=== PATIENT | male | born 1965 | race Caucasian/White ===

== ENCOUNTER 2016-11-21 00:43 | Observation (INO) | payer OTHER ==
[~2016-11-21] VITALS: Ht 177.8 cm; Wt 79.5 kg
[~2016-11-21 00:43] MED LIST: AMBIEN10 MG PO; DAILY VALUE1 EACH PO; INSULIN PUMP SCCONT; LISINOPRIL10 MG PO; METOPROLOL SUCC25 MG PO; PROMETHAZINE HC25 M1 PO; SEROQUEL12.5 MG PO; VENLAFAXINE HCL75 M3 PO; VITAMIN D1000 UNIT PO
[2016-11-21 02:03] LABS: HEMATOCRIT 39.7 % (38.0-50.0); MCH 30.6 PG (29.0-34.0); MCHC 34.5 G/DL (30.0-36.0); MCV 88.8 FL (86-99); PLATELET COUNT 227 K/uL (156-360); RBC DIS.WIDTH-CV 11.8 % (11.8-14.6); RBC DIS.WIDTH-SD 37.6 % (39-53); RED BLOOD COUNT 4.47 M/uL (4.00-5.50)
[2016-11-21 02:06] LABS: ADD MIUA? NO; BILIRUBIN NEGATIVE; BLOOD NEGATIVE; COLOR YELLOW ((YELLOW)); GLUCOSE (STRIP) >=1000; KETONES TRACE; LEUKOCYTES NEGATIVE; NITRITE NEGATIVE; PH, URINE 6.5 (5-8); PROTEIN (STRIP) NEGATIVE; SPECIFIC GRAVITY 1.029 (1.000-1.030); UCUL ADDED? NO; UROBILINOGEN 0.2 MG/DL (0.2-1.0)
[2016-11-21 02:15] LABS: AMPHETAMINE NEGATIVE (500 ng/mL); BARBITURATES NEGATIVE (200 ng/mL); BENZODIAZEPINES NEGATIVE (150 ng/mL); COCAINE NEGATIVE (150 ng/mL); INTERNAL CONTROLS VALID? YES; METHADONE NEGATIVE (200 ng/mL); METHAMPHETAMINE NEGATIVE (500 ng/mL); OPIATES (MORPHINE) NEGATIVE (100 ng/mL); OXYCODONE NEGATIVE (100 ng/mL); PHENCYCLIDINE NEGATIVE (25 ng/mL); PROPOXYPHENE NEGATIVE (300 ng/mL); THC CANNABINOIDS NEGATIVE (50 ng/mL); TRICYCLIC ANTIDEPRESSANTS NEGATIVE (300 ng/mL)
[2016-11-21 02:16] LABS: CHLORIDE 100 mEq/L (99-109); POTASSIUM 4.9 mEq/L (3.7-5.4); SODIUM 134 mEq/L (136-147)
[2016-11-21 02:19] LABS: ANION GAP 12 MEQ/L (2-14)
[2016-11-21 02:21] LABS: GFR ESTIMATE (CALCULATED) > 59 mL/min/
[2016-11-21 02:22] LABS: UREA NITROGEN (BUN) 19 mg/dL (9-23)
[2016-11-21 02:26] LABS: TROP-I INTERPRETATION NEGATIVE; TROPONIN-I < 0.01 ng/mL (0.0-0.30)
[2016-11-21 02:27] LABS: D-DIMER ELISA 0.33 mg/L FEU (< 0.57); GLUCOSE 592 mg/dL (70-99)
[2016-11-21 02:54] LABS: CARBON DIOXIDE (BICARBONATE) 30.4 MEQ/L (20-31)
[2016-11-21 03:51] LABS: TROP-I INTERPRETATION NEGATIVE; TROPONIN-I < 0.01 ng/mL (0.0-0.30)
[2016-11-21 06:16] LABS: POINT-OF-CARE METER ID UU13113702
[2016-11-21 09:08] LABS: CREATINE KINASE 127 IU/L (1-294); TOTAL CK 127 IU/L (1-294)
[2016-11-21 09:34] LABS: CK-MB 2.4 ng/mL (0.0-4.9)
[2016-11-21 09:55] LABS: POINT-OF-CARE METER ID UU13113700
[2016-11-21 10:55] VITALS: BP 80/51
[2016-11-21 13:20] LABS: TROP-I INTERPRETATION NEGATIVE; TROPONIN-I < 0.01 ng/mL (0.0-0.30)
[2016-11-21 14:26] LABS: POINT-OF-CARE METER ID UU13113831
[2016-11-21] MEDS ORDERED: TOPROL XL25 MG PO (15:04)
[2016-11-21] MEDS ORDERED: LIPITOR80 MG PO (15:04)
[2016-11-21 16:28] VITALS: BP 103/58
[2016-11-21 17:57] LABS: POINT-OF-CARE METER ID UU13113700
[2016-11-21 18:29] LABS: TROP-I INTERPRETATION NEGATIVE; TROPONIN-I < 0.01 ng/mL (0.0-0.30)
[2016-11-21 19:34] VITALS: BP 103/66
[2016-11-21 19:47] LABS: POINT-OF-CARE METER ID UU14162513
[2016-11-21 22:20] LABS: POINT-OF-CARE METER ID UU14162513
[2016-11-22 00:19] VITALS: BP 121/65
[2016-11-22 02:19] LABS: POINT-OF-CARE METER ID UU14162513
[2016-11-22 05:56] LABS: POINT-OF-CARE METER ID UU14162513
[2016-11-22 06:12] LABS: EOSINOPHIL (%) 5.9 % (0-5); EOSINOPHIL COUNT 0.4 K/uL (0-0.3); HEMATOCRIT 38.5 % (38.0-50.0); IMMATURE GRANULOCYTE (%) 0.1 % (0.0-0.7); LYMPHOCYTE COUNT 1.5 K/uL (1.0-2.8); MCH 30.6 PG (29.0-34.0); MCHC 34.5 G/DL (30.0-36.0); MCV 88.7 FL (86-99); MONOCYTE (%) 7.1 % (3-12); MONOCYTE COUNT 0.5 K/uL (0-0.8); NEUTROPHIL (%) 66.1 % (45-76); NEUTROPHIL COUNT 4.9 K/uL (1.8-6.4); PLATELET COUNT 204 K/uL (156-360); RBC DIS.WIDTH-CV 11.9 % (11.8-14.6); RBC DIS.WIDTH-SD 38.4 % (39-53); RED BLOOD COUNT 4.34 M/uL (4.00-5.50); WHITE BLOOD COUNT 7.3 K/uL (4.1-10.2)
[2016-11-22 06:29] LABS: ANION GAP 7 MEQ/L (2-14); CHLORIDE 103 MEQ/L (99-109); GFR ESTIMATE (CALCULATED) > 59 mL/min/; SAMPLE HEMOLYSIS CHECK 0; SAMPLE ICTERIC CHECK 0; SAMPLE LIPEMIA CHECK 0; SODIUM 138 MEQ/L (136-147); UREA NITROGEN (BUN) 10 mg/dL (9-23)
[2016-11-22 06:32] LABS: GLUCOSE 175 mg/dL (70-99); POTASSIUM 3.6 MEQ/L (3.7-5.4)
[2016-11-22 08:00] VITALS: BP 118/73
[2016-11-22 10:34] LABS: TREPONEMA ANTIBODY NEGATIVE (NEGATIVE)
[2016-11-22 12:15] VITALS: BP 122/72
[2016-11-22] MEDS ORDERED: NOVOLOG PE100 UNITS/ SC (12:24)
[2016-11-22] MEDS ORDERED: LEVEMIR100 UNIT/2 SC (12:25)
[2016-11-22 15:00] LABS: POINT-OF-CARE METER ID UU13113702
== END 2016-11-22 12:59 | disposition home or self-care (01) ==
LOC: EME 00:43 → EDOF 04:37 → 5WEST 04:37
PROVIDERS: Internal Medicine; Physician Assistant; Physician Assistant Medical; Student in an Organized Health Care Education/Training Program
DX: R07.9 Chest pain, unspecified (principal); R41.82 Altered mental status, unspecified; G93.40 Encephalopathy, unspecified; E11.65 Type 2 diabetes mellitus with hyperglycemia; E78.5 Hyperlipidemia, unspecified; Z72.0 Tobacco use; M62.81 Muscle weakness (generalized); I95.9 Hypotension, unspecified
CPT/HCPCS: 70450; 70551; 71020; 80048; 81003; 82009; 82140; 82550 91; 82553; 82607; 82746; 82803; 82948; 84484; 85025; 85027; 85379; 86780; 93005; 99281; 99285; G0378; J1630; J1650; J1815; J2060; J7030

== ENCOUNTER 2018-03-21 09:42 | Emergency (ER) | payer OTHER ==
[~2018-03-21] VITALS: Ht 177.8 cm; Wt 79.0 kg
[~2018-03-21 09:42] MED LIST changes: +LEVEMIR100 UNIT/2 SC; +LIPITOR80 MG PO; +NOVOLOG PE100 UNITS/ SC; +TOPROL XL25 MG PO
[2018-03-21 10:41] LABS: HEMATOCRIT 41.7 % (38.0-50.0); HEMOGLOBIN 15.1 G/DL (12.5-16.6); MCH 32.4 PG (29.0-34.0); MCHC 36.2 G/DL (30.0-36.0); MCV 89.5 FL (86-99); PLATELET COUNT 297 K/uL (156-360); RBC DIS.WIDTH-CV 12.6 % (11.8-14.6); RBC DIS.WIDTH-SD 41.4 % (39-53); RED BLOOD COUNT 4.66 M/uL (4.00-5.50); WHITE BLOOD COUNT 12.7 K/uL (4.1-10.2)
[2018-03-21 10:46] LABS: AMPHETAMINE NEGATIVE (500 ng/mL); BARBITURATES NEGATIVE (200 ng/mL); BENZODIAZEPINES PRESUMPTIVE POSITIVE (150 ng/mL); BUPRENORPHINE NEGATIVE (10 ng/mL); COCAINE NEGATIVE (150 ng/mL); METHADONE NEGATIVE (200 ng/mL); METHAMPHETAMINE NEGATIVE (500 ng/mL); OPIATES (MORPHINE) NEGATIVE (100 ng/mL); OXYCODONE NEGATIVE (100 ng/mL); PHENCYCLIDINE NEGATIVE (25 ng/mL); PROPOXYPHENE NEGATIVE (300 ng/mL); THC CANNABINOIDS NEGATIVE (50 ng/mL); TRICYCLIC ANTIDEPRESSANTS NEGATIVE (300 ng/mL)
[2018-03-21 10:51] LABS: CHLORIDE 90 mEq/L (99-109); POTASSIUM 4.2 mEq/L (3.7-5.4); SODIUM 134 mEq/L (136-147)
[2018-03-21 10:53] LABS: GLUCOSE 321 mg/dL (70-99)
[2018-03-21 10:56] LABS: SERUM ETHYL ALCOHOL < 10 mg/dL
[2018-03-21 10:57] LABS: CREATININE 1.1 mg/dL (0.6-1.3); GFR ESTIMATE (CALCULATED) > 59 mL/min/ (58.99-99999)
[2018-03-21 10:58] LABS: UREA NITROGEN (BUN) 14 mg/dL (9-23)
[2018-03-21 11:21] LABS: BENZODIAZEPINES, URINE SCREEN POSITIVE (200 ng/mL)
[2018-03-22] MEDS ORDERED: LIBRIUM25 MG PO (06:20)
[2018-03-22 09:53] VITALS: BP 134/81
== END 2018-03-22 10:09 | disposition home or self-care (01) ==
LOC: EME 09:42
PROVIDERS: Emergency Medicine
DX: F10.239 Alcohol dependence with withdrawal, unspecified (principal); F32.9 Major depressive disorder, single episode, unspecified; E11.65 Type 2 diabetes mellitus with hyperglycemia; Z79.4 Long term (current) use of insulin; Y90.0 Blood alcohol level of less than 20 mg/100 ml; E78.5 Hyperlipidemia, unspecified; F41.9 Anxiety disorder, unspecified; I10 Essential (primary) hypertension; F17.200 Nicotine dependence, unspecified, uncomplicated
CPT/HCPCS: 80048; 82948; 84999; 85027; 90832; 99281; 99285; G0480; J1815; J7030

== ENCOUNTER 2018-03-22 23:30 | Emergency (ER) | payer OTHER ==
[~2018-03-22] VITALS: Ht 177.8 cm; Wt 75.0 kg
[~2018-03-22 23:30] MED LIST changes: +LIBRIUM25 MG PO
[2018-03-23 00:08] VITALS: BP 132/84
[2018-03-24] MEDS ORDERED: PANTOPRAZOLE SO40 MG PO (01:37)
[2018-03-24] MEDS ORDERED: MIRTAZAPINE30 MG PO (01:38)
[2018-03-24] MEDS ORDERED: OXCARBAZEPINE300 MG PO (01:40)
[2018-03-24] MEDS ORDERED: HUMALOG100 UNIT/1 SC (01:56)
== END 2018-03-23 00:08 ==
LOC: EME 23:30
DX: M79.5 Residual foreign body in soft tissue (principal); T75.4XXA Electrocution, initial encounter; W86.8XXA Exposure to other electric current, initial encounter; Y35.093A Legal intervention involving other firearm discharge, suspect injured, initial encounter; Z96.41 Presence of insulin pump (external) (internal)
CPT/HCPCS: 82948; 99281; 99283

== ENCOUNTER 2018-03-23 23:16 | Inpatient (IN) | payer OTHER ==
[~2018-03-23] VITALS: Ht 177.8 cm; Wt 74.3 kg
[2018-03-23 23:55] LABS: HEMATOCRIT 40.5 % (38.0-50.0); MCH 32.2 PG (29.0-34.0); MCHC 34.6 G/DL (30.0-36.0); MCV 93.1 FL (86-99); PLATELET COUNT 276 K/uL (156-360); RBC DIS.WIDTH-CV 12.3 % (11.8-14.6); RBC DIS.WIDTH-SD 42.2 % (39-53); RED BLOOD COUNT 4.35 M/uL (4.00-5.50); WHITE BLOOD COUNT 7.9 K/uL (4.1-10.2)
[2018-03-23 23:57] LABS: CARBON DIOXIDE (BICARBONATE) 17.6 MEQ/L (20-31)
[2018-03-24] VITALS (22 sets, daily range): BP systolic 98–126; BP diastolic 63–79
[2018-03-24 00:02] LABS: ALBUMIN 4.2 g/dL (3.2-4.8); CHLORIDE 90 mEq/L (99-109); SODIUM 129 mEq/L (136-147)
[2018-03-24 00:04] LABS: TOTAL PROTEIN 6.9 g/dL (6.4-8.3)
[2018-03-24 00:08] LABS: ALKALINE PHOSPHATASE 215 IU/L (3-129); CREATININE 1.5 mg/dL (0.6-1.3); GFR ESTIMATE (CALCULATED) 52 mL/min/ (58.99-99999)
[2018-03-24 00:09] LABS: UREA NITROGEN (BUN) 16 mg/dL (9-23)
[2018-03-24 00:10] LABS: AST (GOT) 49 IU/L (2-34)
[2018-03-24 00:11] LABS: ALT (GPT) 53 IU/L (3-49); LIPASE 13 U/L (1.0-51.0)
[2018-03-24 00:21] LABS: GLUCOSE 713 mg/dL (70-99); POTASSIUM 5.7 mEq/L (3.7-5.4)
[2018-03-24 00:52] LABS: APPEARANCE CLEAR ((CLEAR)); BILIRUBIN NEGATIVE; BLOOD NEGATIVE; COLOR COLORLESS ((YELLOW)); GLUCOSE (STRIP) >=500; KETONES 80; LEUKOCYTES NEGATIVE; NITRITE NEGATIVE; PROTEIN (STRIP) NEGATIVE; SPECIFIC GRAVITY 1.025 (1.000-1.030); UCUL ADDED? NO; UROBILINOGEN 0.2 MG/DL (0.2-1.0)
[2018-03-24 01:25] LABS: TROP-I INTERPRETATION NEGATIVE; TROPONIN-I < 0.01 ng/mL (0.0-0.30)
[2018-03-24] MEDS ORDERED: PANTOPRAZOLE SO40 MG PO (01:37)
[2018-03-24] MEDS ORDERED: MIRTAZAPINE30 MG PO (01:38)
[2018-03-24] MEDS ORDERED: OXCARBAZEPINE300 MG PO (01:40)
[2018-03-24] MEDS ORDERED: HUMALOG100 UNIT/1 SC (01:56)
[2018-03-24 02:10] LABS: MAGNESIUM 1.9 mg/dl (1.3-2.7)
[2018-03-24 04:04] LABS: CHLORIDE 99 mEq/L (99-109)
[2018-03-24 04:10] LABS: CREATININE 1.4 mg/dL (0.6-1.3); GFR ESTIMATE (CALCULATED) 56 mL/min/ (58.99-99999); PHOSPHORUS 3.5 mg/dL (2.5-4.9)
[2018-03-24 04:11] LABS: UREA NITROGEN (BUN) 17 mg/dL (9-23)
[2018-03-24 04:12] LABS: GLUCOSE 345 mg/dL (70-99); POTASSIUM 4.4 mEq/L (3.7-5.4); SODIUM 137 mEq/L (136-147)
[2018-03-24 08:06] LABS: CHLORIDE 100 MEQ/L (99-109); GFR ESTIMATE (CALCULATED) > 59 mL/min/ (58.99-99999); PHOSPHORUS 3.3 mg/dL (2.5-4.9); SODIUM 136 MEQ/L (136-147); UREA NITROGEN (BUN) 14 mg/dL (9-23)
[2018-03-24 08:09] LABS: GLUCOSE 142 mg/dL (70-99)
[2018-03-24 10:00] LABS: AMPHETAMINE NEGATIVE (500 ng/mL); BARBITURATES NEGATIVE (200 ng/mL); BENZODIAZEPINES PRESUMPTIVE POSITIVE (150 ng/mL); BUPRENORPHINE NEGATIVE (10 ng/mL); COCAINE NEGATIVE (150 ng/mL); METHADONE NEGATIVE (200 ng/mL); METHAMPHETAMINE NEGATIVE (500 ng/mL); OPIATES (MORPHINE) NEGATIVE (100 ng/mL); OXYCODONE NEGATIVE (100 ng/mL); PHENCYCLIDINE NEGATIVE (25 ng/mL); PROPOXYPHENE NEGATIVE (300 ng/mL); THC CANNABINOIDS NEGATIVE (50 ng/mL); TRICYCLIC ANTIDEPRESSANTS NEGATIVE (300 ng/mL)
[2018-03-24 10:34] LABS: BENZODIAZEPINES, URINE SCREEN POSITIVE (200 ng/mL)
[2018-03-24 12:58] LABS: CHLORIDE 102 MEQ/L (99-109); CREATININE 0.9 MG/DL (0.6-1.3); GFR ESTIMATE (CALCULATED) > 59 mL/min/ (58.99-99999); POTASSIUM 3.7 MEQ/L (3.7-5.4); SODIUM 136 MEQ/L (136-147); UREA NITROGEN (BUN) 11 mg/dL (9-23)
[2018-03-24 12:59] LABS: GLUCOSE 251 mg/dL (70-99); PHOSPHORUS 1.4 mg/dL (2.5-4.9)
[2018-03-24 15:48] LABS: CHLORIDE 102 MEQ/L (99-109); CREATININE 0.9 MG/DL (0.6-1.3); GFR ESTIMATE (CALCULATED) > 59 mL/min/ (58.99-99999); GLUCOSE 259 mg/dL (70-99); SODIUM 134 MEQ/L (136-147); UREA NITROGEN (BUN) 10 mg/dL (9-23)
[2018-03-24 16:02] LABS: PHOSPHORUS < 1.0 mg/dL (2.5-4.9)
[2018-03-24 20:12] LABS: CHLORIDE 102 MEQ/L (99-109); GFR ESTIMATE (CALCULATED) > 59 mL/min/ (58.99-99999); GLUCOSE 205 mg/dL (70-99); POTASSIUM 3.9 MEQ/L (3.7-5.4); SODIUM 133 MEQ/L (136-147); UREA NITROGEN (BUN) 9 mg/dL (9-23)
[2018-03-24 20:16] LABS: PHOSPHORUS 1.4 mg/dL (2.5-4.9)
[2018-03-25] VITALS (7 sets, daily range): BP systolic 112–129; BP diastolic 63–75
[2018-03-25 06:32] LABS: BASOPHIL (%) 0.6 % (0-1); EOSINOPHIL (%) 4.7 % (0-5); EOSINOPHIL COUNT 0.2 K/uL (0-0.3); HEMATOCRIT 33.7 % (38.0-50.0); IMMATURE GRANULOCYTE (%) 0.4 % (0.0-0.7); LYMPHOCYTE (%) 18.6 % (15-42); LYMPHOCYTE COUNT 0.9 K/uL (1.0-2.8); MCH 32.2 PG (29.0-34.0); MCV 92.1 FL (86-99); MONOCYTE (%) 7.7 % (3-12); MONOCYTE COUNT 0.4 K/uL (0-0.8); NEUTROPHIL COUNT 3.2 K/uL (1.8-6.4); PLATELET COUNT 201 K/uL (156-360); RBC DIS.WIDTH-CV 12.5 % (11.8-14.6); RBC DIS.WIDTH-SD 42.5 % (39-53); RED BLOOD COUNT 3.66 M/uL (4.00-5.50); WHITE BLOOD COUNT 4.7 K/uL (4.1-10.2)
[2018-03-25 06:33] LABS: HEMOGLOBIN 11.8 G/DL (12.5-16.6)
[2018-03-25 06:41] LABS: CHLORIDE 104 MEQ/L (99-109); CREATININE 0.9 MG/DL (0.6-1.3); GFR ESTIMATE (CALCULATED) > 59 mL/min/ (58.99-99999); MAGNESIUM 1.7 mg/dl (1.3-2.7); UREA NITROGEN (BUN) 7 mg/dL (9-23)
[2018-03-25 06:55] LABS: GLUCOSE 41 mg/dL (70-99); POTASSIUM 3.1 MEQ/L (3.7-5.4); SODIUM 142 MEQ/L (136-147)
[2018-03-25 13:04] LABS: CHLORIDE 100 MEQ/L (99-109); CREATININE 0.9 MG/DL (0.6-1.3); GFR ESTIMATE (CALCULATED) > 59 mL/min/ (58.99-99999); POTASSIUM 3.7 MEQ/L (3.7-5.4); SODIUM 135 MEQ/L (136-147); UREA NITROGEN (BUN) 8 mg/dL (9-23)
[2018-03-25 13:10] LABS: GLUCOSE 234 mg/dL (70-99)
[2018-03-26 00:52] VITALS: BP 119/77
[2018-03-26 04:54] VITALS: BP 114/81
[2018-03-26 06:50] VITALS: BP 126/79
[2018-03-26] MEDS ORDERED: FOLIC ACID1 MG PO (09:47)
[2018-03-26] MEDS ORDERED: LEVEMIR100 UNIT/2 SC (09:47)
[2018-03-26] MEDS ORDERED: CHLORDIAZEPOXID25 MG PO (09:47)
[2018-03-26] MEDS ORDERED: Thiamine,Vitamin B1 PO (09:47)
[2018-03-26] MEDS ORDERED: THERAGRAN1 TABLET PO (09:47)
[2018-03-26] MEDS ORDERED: NOVOLOG 10100 UNITS/ SC (09:49)
[2018-03-26 11:20] VITALS: BP 120/81
== END 2018-03-26 13:00 | DRG 638 ==
LOC: EME 23:16 → EDOF 03-24 01:11 → ENRESERV 03-24 01:13 → 4WEST 03-24 02:29 → ENRESERV 03-25 01:19 → 4WEST 03-25 01:33 → ENRESERV 03-25 01:35 → 5EAST 03-25 02:03
PROVIDERS: Emergency Medicine; Hospitalist; Physician Assistant; Specialist; Surgery
DX: E10.10 Type 1 diabetes mellitus with ketoacidosis without coma (principal); E10.649 Type 1 diabetes mellitus with hypoglycemia without coma; F10.231 Alcohol dependence with withdrawal delirium; R00.0 Tachycardia, unspecified; F43.25 Adjustment disorder with mixed disturbance of emotions and conduct; F32.9 Major depressive disorder, single episode, unspecified; E86.0 Dehydration; E87.5 Hyperkalemia; E78.5 Hyperlipidemia, unspecified; I10 Essential (primary) hypertension; R74.0 Nonspecific elevation of levels of transaminase and lactic acid dehydrogenase [LDH]; F41.9 Anxiety disorder, unspecified; F17.290 Nicotine dependence, other tobacco product, uncomplicated; Z79.4 Long term (current) use of insulin; Z96.41 Presence of insulin pump (external) (internal); Z65.3 Problems related to other legal circumstances; Z80.1 Family history of malignant neoplasm of trachea, bronchus and lung; Z80.3 Family history of malignant neoplasm of breast; Z82.49 Family history of ischemic heart disease and other diseases of the circulatory system
CPT/HCPCS: 80047; 80048; 80048 91; 80053; 81003; 82010; 82803; 82948; 83036; 83690; 83735; 84100; 84484; 84999; 85025; 85027; 87641; 93005; 99281; 99285; J1644; J1815; J2060; J2405; J3411; J3475; J7030; J7040; J7050; S0028